=== PATIENT | male | born 1935 | race Caucasian/White ===

== ENCOUNTER 2017-01-27 08:00 | Observation (INO) ==
--- OUTSIDE RECORDS SUMMARY | 2017-01-27 08:05 | External Medical Summary | Referral Summary ---
:1935 Author Organization [facility] [place] [address] Care Team Providers Name Role Phone Varun Martinez Primary Care Physician Encounter [facility] [phone] Date(s): 06/06/16 - 06/06/16 [facility] [place] [phone] Discharge Diagnosis: Hypertension Discharge Diagnosis: Constipation Discharge Diagnosis: Mild depression Discharge Diagnosis: Right shoulder pain Discharge Diagnosis: Chronic insomnia Discharge Diagnosis: Gout Discharge Disposition: 01-Home or Self Care Attending Physician: Varun Martinez MD Admitting Physician: Varun Martinez MD Vital Signs Most recent to oldest [Reference Range]: 1 Blood Pressure [90-140/60-90 mmHg] 126/84 mmHg (06/06/16 8:46 AM) Problem List Condition Effective Dates Status Health Status Informant Abrasion of arm, right(Confirmed) Active Aortic insufficiency(Confirmed) Active Aortic valve sclerosis(Confirmed) Active Blister of foot without Active infection(Confirmed) CAD (coronary artery Active disease)(Confirmed) Dehydration(Confirmed) Active Neuropathy, peripheral(Confirmed) Active Dizzy spells(Confirmed) Active Gout(Confirmed) Active Ventral hernia(Confirmed) Active Hypertension(Confirmed) Active Obesity(Confirmed) Active patient Pneumonia(Confirmed) Active Encounter for prostate cancer Active screening(Confirmed) Allergies, Adverse Reactions, Alerts No Known Medication Allergies Medications aspirin 325 mg, Oral, Daily, 0 Refill(s) Start Date: 11/13/14 Status: OrderedCollagen tablets Collagen tablets, 0 Refill(s) Start Date: 05/31/15 Status: OrderedLipitor 40 mg oral tablet 1 tabs, Oral, Daily, # 30 tabs, 0 Refill(s) Start Date: 12/13/13 Status: OrderedMiscellaneous DME DME Item Compressions Hose-Men's WHITE Dress Socks X-Lg Pair 20-30 mm Dispense 3 pair [id number] MATHIS [id number], See Instructions, # 4 Each, 0 Refill(s), Supply Start Date: 09/26/14 Status: OrderedMobic 7.5 mg oral tablet 7.5 mg 1 tabs, Oral, BID, # 60 tabs, 2 Refill(s), Pharmacy: [id number], 1 tabs Oral BID Start Date: 06/06/16 Status: Orderednitroglycerin 0.4 mg sublingual tablet 1 tabs, SubLingual, q5min, as needed for chest pain, # 100 tabs, 0 Refill(s) Start Date: 12/13/13 Status: OrderedOsteo Bi-Flex 0 Refill(s) Start Date: 05/31/15 Status: OrderedtraZODone 50 mg oral tablet 25 mg 0.5 tabs, Oral, Bedtime (once a day), # 15 tabs, 2 Refill(s), Pharmacy: [id number], 0.5 tabs Oral Bedtime (once a day) Start Date: 06/06/16 Status: OrderedUloric 40 mg oral tablet 40 mg 1 tabs, Oral, Daily, # 30 tabs, 0 Refill(s), Pharmacy: [id number], 1 tabs Oral Daily Start Date: 06/03/16 Status: OrderedVitamin B-12 1,000 mcg, Oral, Daily, 0 Refill(s) Start Date: 11/13/14 Status: Ordered Results No data available for this section Immunizations Given and Recorded Vaccine Date Status Refusal Reason tetanus/diphth/pertuss (Tdap) adult/adol 04/22/13 Recorded influenza virus vaccine, inactivated1, 2 01/14/16 Recorded influenza virus vaccine, inactivated3 01/13/15 Recorded influenza virus vaccine, live 01/20/13 Given 1Location History: [id number] Comment: [01/15/2016] Pt was given Fluzone High Dose [id number]. This is not currently an option in the product box.3Location History: [facility] Procedures Procedure Date Related Diagnosis Body Site Complicated cataract surgery 10/31/14 Colonoscopy [email or web address] 07/19/07 Adenoidectomy Appendectomy Cardiac catheterization stent of LAD artery Epididymectomy; bilateral Tonsillectomy 1diverticulosis - Plan repeat colonoscopy in 10 years 07/18/2017 Social History Social History Type Response Smoking Status Former smoker; Type: Cigarettes Assessment and Plan Extracted from: Title: Ambulatory Patient Education Author: Varun Martinez MD Date: Family Medicine Arthritis, Nonspecific Arthritis is pain, redness, warmth, or puffiness (inflammation) of a joint. The joint may be stiff or hurt when you move it. One or more joints may be affected. There are many types of arthritis. Your d octor may not know what type you have right away. The most common cause of arthritis is wear and tear on the joint (osteoarthritis). HOME CARE Only take medicine as told by your doctor. Rest the joint as much as possible. Raise (elevate) your joint if it is puffy. Use crutches if the painful joint is in your leg. Drink enough fluids to keep your pee (urine) clear or pale yellow. Follow your doctor's diet instructions. Use cold packs for very bad joint pain for 10 to 15 minutes every hour. Ask your doctor if it is okay for you to use hot packs. Exercise as told by your doctor. Take a warm shower if you have stiffness in the morning. Move your sore joints throughout the day. GET HELP RIGHT AWAY IF: You have a fever. You have very bad joint pain, puffiness, or redness. You have many joints that are painful and puffy. You are not getting better with treatment. You have very bad back pain or leg weakness. You cannot control when you poop (bowel movement) or pee (urinate). You do not feel better in 24 hours or are getting worse. You are having side effects from your medicine. MAKE SURE YOU: Understand these instructions. Will watch your condition. Will get help right away if you are not doing well or get worse. This information is not intended to replace advice given to you by your health care provider. Make sure you discuss any questions you have with your health care provider. Document Released: 07/29/2010 Document Revised: 11/02/2012 Document Reviewed: 07/30/2015 [employer] Patient Education 2016 [employer] Home Health Care Constipation, Adult Constipation is when a person: Poops (has a bowel movement) less than 3 times a week. Has a hard time pooping. Has poop that is dry, hard, or bigger than normal. HOME CARE Eat foods with a lot of fiber in them. This includes fruits, vegetables , beans, and whole grains such as brown rice. Avoid fatty foods and foods with a lot of sugar. This includes danish fries, hamburgers, cookies, candy, and soda. If you are not getting enough fiber from food, take products with added fiber in them (supplements). Drink enough fluid to keep your pee (urine) clear or pale yellow. Exercise on a regular basis, or as told by your doctor. Go to the restroom when you feel like you need to poop. Do not hold it. Only take medicine as told by your doctor. Do not take medicines that help you poop (laxatives) without talking to your doctor first. GET HELP RIGHT AWAY IF: You have bright red blood in your poop (stool). Your constipation lasts more than 4 days or gets worse. You have belly (abdominal) or butt (rectal) pain. You have thin poop (as thin as a pencil). You lose weight, and it cannot be explained. MAKE SURE YOU: Understand these instructions. Will watch your condition. Will get help right away if you are not doing well or get worse. This information is not intended to replace advice given to you by your health care provider. Make sure you discuss any questions you have with your health care provider. Document Released: 10/20/2008 Document Revised: 05/25/2015 Document Reviewed: 02/13/2014 [employer] Patient Education 2016 [employer] Musculoskeletal Musculoskeletal Pain Musculoskeletal pain is muscle and nii aches and pains. These pains can occur in any part of the body. Your caregiver may treat you without knowing the cause of the pain. They may treat you if blood o r urine tests, X-rays, and other tests were normal. CAUSES There is often not a definite cause or reason for these pains. These pains may be caused by a type of germ (virus). The discomfort may also come from overuse. Overuse includes working out too hard when your body is not fit. Nii aches also come from weather changes. Bone is sensitive to atmospheric pressure changes. HOME CARE INSTRUCTIONS Ask when your test results will be ready. Make sure you get your test results. Only take [id number]-[id number] or prescription medicines for pain, discomfort, or fever as directed by your caregiver. If you were given medications for your condition, do not drive, operate machiner y or power tools, or sign legal documents for 24 hours. Do not drink alcohol. Do not take sleeping pills or other medications that may interfere with treatment. Continue all activities unless the activities cause more pain. When the pain lessens, slowly resume normal activities. Gradually increase the intensity and duration of the activities or exercise. During periods of severe pain, bed rest may be helpful. Lay or sit in any position that is comfortable. Putting ice on the injured area. Put ice in a bag. Place a towel between your skin and the bag. Leave the ice on for 15 to 20 minutes, 3 to 4 times a day. Follow up with your caregiver for continued problems and no reason can be found for the pain. If the pain becomes worse or does not go away, it may be necessary to repeat tests or do additional t esting. Your caregiver may need to look further for a possible cause. SEEK IMMEDIATE MEDICAL CARE IF: You have pain that is getting worse and is not relieved by medications. You develop chest pain that is associated with shortness or breath, sweating, feeling sick to your stomach (nauseous), or throw up (vomit). Your pain becomes localized to the abdomen. You develop any new symptoms that seem different or that concern you. MAKE SURE YOU: Understand these instructions. Will watch your condition. Will get help right away if you are not doing well or get worse. This information is not intended to replace advice given to you by your health care provider. Make sure you discuss any questions you have with your health care provider. Document Released: 05/04/2006 Document Revised: 07/26/2012 Document Reviewed: 01/06/2014 [employer] Patient Education 2016 [employer] No follow up information was provided. Extracted from: Title: Office Visit Note Author: Varun Martinez MD Date: 06/06/16 Assessment/Plan 1.Right shoulder pain Rx for Mobic and heat and follow up if it continues. 2.Constipation Trial of Miralax. 3.Chronic insomnia Trazodone 25mg for sleep and depression. 4.Mild depression As above. Gout Continue with the Uloric. 40mg. Hypertension No change in treatment. Ordered: Comprehensive Metabolic Panel Follow up in 3 months. Lab is in to be taken next week.
--- OUTSIDE RECORDS SUMMARY | 2017-01-27 08:05 | External Medical Summary | Referral Summary ---
:1935 Author Organization [facility], [facility] Address [address] [place] [address] [place] [address] Care Team Providers Name Role Phone Varun Martinez Primary Care Physician Encounter Date(s): 01/31/15 - 01/31/15 [facility], [address] [place] [phone] [place] Discharge Diagnosis: Arm injury Discharge Diagnosis: Skin tear of right forearm without complication Discharge Disposition: 01-Home or Self Care Attending Physician: Marcus Fisher PA-C Admitting Physician: Marcus Fisher PA-C Vital Signs Most recent to oldest [Reference Range]: 1 Temperature Tympanic [36.6-38.1 degC] 36.2 degC *LOW* (01/31/15 2:13 PM) Peripheral Pulse Rate [60-100 bpm] 84 bpm (01/31/15 2:13 PM) Blood Pressure [90-140/60-90 mmHg] 146/98 mmHg *HI* (01/31/15 2:13 PM) SpO2 96 % (01/31/15 2:13 PM) Problem List Condition Effective Dates Status Health [...] Reactions, Alerts No Known Medication Allergies Medications allopurinol 300 mg oral tablet See Instructions, TAKE ONE TABLET BY MOUTH EVERY DAY, # 90 tabs, 3 Refill(s), Pharmacy: [id number], TAKE ONE TABLET BY MOUTH EVERY DAY Start Date: 05/31/15 Status: Orderedaspirin 325 mg, Oral, Daily, 0 Refill(s) Start Date: 11/13/14 Status: OrderedCollagen tablets Collagen tablets, 0 Refill(s) Start Date: 05/31/15 Status: OrderedLipitor 40 mg oral tablet 1 tabs, Oral, Daily, # 30 tabs, 0 Refill(s) Start Date: 12/13/13 Status: OrderedMiscellaneous DME DME Item Compressions Hose-Men's WHITE Dress Socks X-Lg Pair 20-30 mm Dispense 3 pair [id number] [id number], See Instructions, # 4 Each, 0 Refill(s), Supply Start Date: 09/26/14 Status: Orderednitroglycerin 0.4 mg sublingual tablet 1 tabs, SubLingual, q5min, as needed for chest pain, # 100 tabs, 0 Refill(s) Start Date: 12/13/13 Status: OrderedOsteo Bi-Flex 0 Refill(s) Start Date: 05/31/15 Status: OrderedVitamin B-12 1,000 mcg, Oral, Daily, 0 Refill(s) Start Date: 11/13/14 Status: Ordered Results No data available for this section Immunizations Vaccine Date Refusal Reason tetanus/diphth/pertuss (Tdap) adult/adol 04/22/13 influenza virus vaccine, inactivated1 01/13/15 influenza virus vaccine, live 01/20/13 1Location History: [facility] Procedures Procedure Date Related Diagnosis Body Site Complicated cataract surgery 10/31/14 Colonoscopy [email or web address] 07/19/07 Adenoidectomy Appendectomy Cardiac catheterization stent of LAD artery Epididymectomy; bilateral Tonsillectomy 1diverticulosis - Plan repeat colonoscopy in 10 years 07/18/2017 Social History Social History Type Response Smoking Status Former smoker; Type: Cigarettes Assessment and Plan Extracted from: Title: skin tear Author: Marcus Fisher PA-C Date: 01/31/15 Assessment/Plan Arm injury X-rays were reviewedwere taken in the emergency room,no signs of fracture or other abnormalities. Activities as tolerated. Skin tear of right forearm without complication It appears to be healing very well, without evidence of infection. Patient was reassured. We applied Xeroform to the woundfollowed by [place];recommended repeating this for 4 more days then dry bandage when out working otherwise leave open to air.
--- OUTSIDE RECORDS SUMMARY | 2017-01-27 08:05 | External Medical Summary | Referral Summary ---
:1935 [facility] Address [address] [place] [address] [place] [phone] Care Team Providers Name Role Phone Varun Martinez Primary Care Physician Encounter [facility] [id number] Date(s): 05/31/15 - 05/31/15 [facility] [address] [place] [phone] [place] Discharge Disposition: 01-Home or Self Care Attending Physician: Varun Martinez MD Admitting Physician: Varun Martinez MD Vital Signs Most recent to oldest [Reference Range]: 1 Blood Pressure [90-140/60-90 mmHg] 128/78 mmHg (05/31/15 8:40 AM) Problem List Condition Effective Dates Status [...] DAY, # 90 tabs, 3 Refill(s), Pharmacy: [facility], TAKE ONE TABLET BY MOUTH EVERY DAY [...] X-Lg Pair 20-30 mm Dispense 3 pair [id number] VOWINCKEL [phone], See Instructions, # 4 Each, 0 Refill(s), Supply Start Date: 09/26/14 Status: Orderednitroglycerin 0.4 mg sublingual tablet 1 tabs, SubLingual, q5min, as needed for chest pain, # 100 tabs, 0 Refill(s) Start Date: 12/13/13 Status: OrderedOsteo Bi-Flex 0 Refill(s) Start Date: 05/31/15 Status: OrderedVitamin B-12 1,000 mcg, Oral, Daily, 0 Refill(s) Start Date: 11/13/14 Status: Ordered Results Hematology Most recent to oldest [Reference Range]: 1 WBC [4.8-10.8 10*3/uL] 6.0 10*3/uL (05/31/15 9:20 AM) RBC [4.60-6.20] 4.88 (05/31/15 9:20 AM) Hgb [14.0-18.0 gm/dL] 16.0 gm/dL (05/31/15 9:20 AM) Hct [42.0-52.0 %] 48.0 % (05/31/15 9:20 AM) MCV [82.0-99.0 fL] 98.4 fL (05/31/15 9:20 AM) MCH [27.0-32.0 pg] 32.8 pg *HI* (05/31/15 9:20 AM) MCHC [32.0-36.0 gm/dL] 33.3 gm/dL (05/31/15 9:20 AM) RDW [11.5-14.5 %] 13.5 % (05/31/15 9:20 AM) Platelet [150-400 10*3/uL] 136 10*3/uL *LOW* (05/31/15 9:20 AM) MPV [8.8-14.8 fL] 11.2 fL (05/31/15 9:20 AM) Immature Granulocytes [0.0-1.0 %] 0.3 % (05/31/15 9:20 AM) Neutrophils [51-75 %] 71 % (05/31/15 9:20 AM) Lymphocytes [20-46 %] 12 % *LOW* (05/31/15 9:20 AM) Monocytes [4-11 %] 10 % (05/31/15 9:20 AM) Eosinophils [0-4 %] 6 % *HI* (05/31/15 9:20 AM) Basophils [0-2 %] 1 % (05/31/15 9:20 AM) Neutro Absolute [1.90-7.00 10*3] 4.27 10*3 (05/31/15 9:20 AM) Lymph Absolute [0.80-3.30 10*3] 0.71 10*3 *LOW* (05/31/15 9:20 AM) Colbert Absolute [0.30-1.00 10*3] 0.61 10*3 (05/31/15 9:20 AM) Eos Absolute [0.00-0.50 10*3] 0.34 10*3 (05/31/15 9:20 AM) Baso Absolute [0.00-0.20 10*3] 0.05 10*3 (05/31/15 9:20 AM) Chemistry Most recent to oldest [Reference Range]: 1 Sodium Lvl [135-144 mEq/L] 141 mEq/L (05/31/15 9:20 AM) Potassium Lvl [3.5-5.2 mEq/L] 4.1 mEq/L (05/31/15 9:20 AM) Chloride [99-111 mEq/L] 108 mEq/L (05/31/15 9:20 AM) CO2 [23-31 mEq/L] 25 mEq/L (05/31/15 9:20 AM) AGAP [3-20] 8 (05/31/15 9:20 AM) BUN [8-26 mg/dL] 22 mg/dL (05/31/15 9:20 AM) Glucose Lvl [70-99 mg/dL] 122 mg/dL *HI* (05/31/15 9:20 AM) Creatinine Lvl [0.72-1.25 mg/dL] 0.91 mg/dL (05/31/15 9:20 AM) eGFR [>60 mL/min] >60 mL/min 1 (05/31/15 9:20 AM) Calcium Lvl [8.9-10.5 mg/dL] 9.1 mg/dL (05/31/15 9:20 AM) Albumin Lvl [3.4-4.8 gm/dL] 3.9 gm/dL (05/31/15 9:20 AM) Total Protein [6.2-8.1 gm/dL] 6.9 gm/dL (05/31/15 9:20 AM) Globulin [1.8-4.0 gm/dL] 3.0 gm/dL (05/31/15 9:20 AM) ALT [0-55 U/L] 31 U/L (05/31/15 9:20 AM) AST [5-34 U/L] 25 U/L (05/31/15 9:20 AM) Alk Phos [40-150 U/L] 75 U/L (05/31/15 9:20 AM) Bili Total [0.2-1.2 mg/dL] 1.4 mg/dL *HI* (05/31/15 9:20 AM) PSA (wihout Reflex Free) [0.0-6.5 ng/mL] 0.4 ng/mL 2 (05/31/15 9:20 AM) Chol [0-199 mg/dL] 153 mg/dL (05/31/15 9:20 AM) Trig [0-149 mg/dL] 157 mg/dL *HI* (05/31/15 9:20 AM) HDL [40-84 mg/dL] 41 mg/dL (05/31/15 9:20 AM) LDL [0-130 mg/dL] 81 mg/dL (05/31/15 9:20 AM) VLDL Cholesterol [0-28 mg/dL] 31 mg/dL *HI* (05/31/15 9:20 AM) Cardiac Risk [0.0-5.7] 3.7 (05/31/15 9:20 AM) 1Result Comment: Multiply eGFR results by 1.21 for race.2Result Comment: AUA PSA Best Practice Guidelines: Age-Adjusted PSA Values by Ethnic Group Age Range Asians - Caucasians Americans 40-49 0-2.0 0-2.0 0-2.5 50-59 0-3.0 0-4.0 0-3.5 60-69 0-4.0 0-4.5 0-4.5 70-79 0-5.0 0-5.5 0-6.5 Immunizations Vaccine Date Refusal Reason tetanus/diphth/pertuss (Tdap) adult/adol 04/22/13 influenza virus vaccine, inactivated1 01/13/15 influenza virus vaccine, live 01/20/13 1Location History: [facility] Procedures Procedure Date Related Diagnosis Body Site Complicated cataract surgery 10/31/14 Colonoscopy [email or web address] 07/19/07 Adenoidectomy Appendectomy Cardiac catheterization stent of LAD artery Epididymectomy; bilateral Tonsillectomy 1diverticulosis - Plan repeat colonoscopy in 10 years 07/18/2017 Social History Social History Type Response Smoking Status Former smoker; Type: Cigarettes Assessment and Plan No data available for this section
--- OUTSIDE RECORDS SUMMARY | 2017-01-27 08:05 | External Medical Summary | Referral Summary ---
:1935 Author Organization [facility] Address [address] [place] [address] [place] [address] Care Team Providers Name Role Phone Varun Martinez Primary Care Physician Encounter [facility] Date(s): 11/13/14 - 11/13/14 [facility] [address] [place] [address] [place] Discharge Disposition: 01-Home or Self Care Attending Physician: Varun Martinez MD Admitting Physician: Varun Martinez MD Vital Signs Most recent to oldest [Reference Range]: 1 Blood Pressure [90-140/60-90 mmHg] 138/90 mmHg (11/13/14 3:15 PM) Problem List Condition Effective Dates Status Health Status Informant Abrasion of arm, right(Confirmed) Active Aortic insufficiency(Confirmed) Active Aortic valve sclerosis(Confirmed) Active Blister of foot without Active infection(Confirmed) CAD (coronary artery Active disease)(Confirmed) Dehydration(Confirmed) Active Neuropathy, peripheral(Confirmed) Active Dizzy spells(Confirmed) Active Gout(Confirmed) Active Ventral hernia(Confirmed) Active Hypertension(Confirmed) Active Obesity(Confirmed) Active patient Pneumonia(Confirmed) Active Allergies, Adverse Reactions, Alerts No Known Medication Allergies Medications allopurinol 300 mg oral tablet See Instructions, TAKE ONE TABLET BY MOUTH EVERY DAY, # 30 tabs, 5 Refill(s), eRx: [facility] [id number], TAKE ONE TABLET BY MOUTH EVERY DAY Start Date: 12/04/14 Status: Orderedaspirin 325 mg, Oral, Daily, 0 Refill(s) Start Date: 11/13/14 Status: OrderedBactroban 2% topical cream 1 marika, Topical, BID, # 15 g, 0 Refill(s), Pharmacy: [id number] Start Date: 02/05/15 Status: OrderedLipitor 40 mg oral tablet 1 tabs, Oral, Daily, # 30 tabs, 0 Refill(s) Start Date: 12/13/13 Status: OrderedMiscellaneous DME DME Item Compressions Hose-Men's WHITE Dress Socks X-Lg Pair 20-30 mm Dispense 3 pair [id number] [place] [phone], See Instructions, # 4 Each, 0 Refill(s), Supply Start Date: 09/26/14 Status: Orderednitroglycerin 0.4 mg sublingual tablet 1 tabs, SubLingual, q5min, as needed for chest pain, # 100 tabs, 0 Refill(s) Start Date: 12/13/13 Status: OrderedVitamin B-12 1,000 mcg, Oral, Daily, 0 Refill(s) Start Date: 11/13/14 Status: Ordered Results No data available for this section Immunizations Vaccine Date Refusal Reason tetanus/diphth/pertuss (Tdap) adult/adol 04/22/13 influenza virus vaccine, inactivated1 01/13/15 influenza virus vaccine, live 01/20/13 1Location History: [facility] Procedures Procedure Date Related Diagnosis Body Site Colonoscopy [id number]/[email or web address] 07/19/07 Adenoidectomy Appendectomy Cardiac catheterization stent of LAD artery Epididymectomy; bilateral Tonsillectomy 1diverticulosis - Plan repeat colonoscopy in 10 years 07/18/2017 Social History Social History Type Response Smoking Status Former smoker; Type: Cigarettes Assessment and Plan Extracted from: Title: Ambulatory Patient Education Author: Varun Martinez MD Date: Family Medicine Peripheral Neuropathy Peripheral neuropathy is a type of nerve damage. It affects nerves that carry signals between the spinal cord and other parts of the body. These are called peripheral nerves. With peripheral neuropathy, one nerve or a group of nerves may be damaged. CAUSES Many things can damage peripheral nerves. For some people with peripheral neuropathy, the cause is unknown. Some causes include: Diabetes. This is the most common cause of peripheral neuropathy. Injury to a nerve. Pressure or stress on a nerve that lasts a long time. Too little vitamin B. Alcoholism can lead to this. Infections. Autoimmune diseases, such as multiple sclerosis and systemic lupus erythematosus. Inherited nerve diseases. Some medicines, such as cancer drugs. Toxic substances, such as lead and mercury. Too little blood flowing to the legs. Kidney disease. Thyroid disease. SIGNS AND SYMPTOMS Different people have different symptoms. The symptoms you have will depend on which of your nerves is damaged. Common symptoms include: Loss of feeling (numbness ) in the feet and hands. Tingling in the feet and hands. Pain that kirkpatrick. Very sensitive skin. Weakness. Not being able to move a part of the body (paralysis ). Muscle twitching. Clumsiness or poor coordination. Loss of balance. Not being able to control your bladder. Feeling dizzy. Sexual problems. DIAGNOSIS Peripheral neuropathy is a symptom, not a disease. Finding the cause of peripheral neuropathy can be hard. To figure that out, your health care provider will take a medical history and do a physical exa m. A neurological exam will also be done. This involves checking things affected by your brain, spinal cord, and nerves (nervous system ). For example, your health care provider will check your reflexes, how you move, and what you can feel. Other types of tests may also be ordered, such as: Blood tests. A test of the fluid in your spinal cord. Imaging tests, such as CT scans or an MRI. Electromyography (EMG). This test checks the nerves that control muscles. Nerve conduction velocity tests. These tests check how fast messages pass through your nerves. Nerve biopsy. A small piece of nerve is removed. It is then checked under a microscope. TREATMENT Medicine is often used to treat peripheral neuropathy. Medicines may include: Pain-relieving medicines. Prescription or mbip-pxp-bfnvvre medicine may be suggested. Antiseizure medicine. This may be used for pain. Antidepressants. These also may help ease pain from neuropathy. Lidocaine. This is a numbing medicine. You might wear a patch or be given a shot. Mexiletine. This medicine is typically used to help control irregular heart rhythms. Surgery. Surgery may be needed to relieve pressure on a nerve or to destroy a nerve that is causing pain. Physical therapy to help movement. Assistive devices to help movement. HOME CARE INSTRUCTIONS Only take cjdd-njb-nvldqkb or prescription medicines as directed by your health care provider. Follow the instructions carefully for any given medicines. Do not take any other medicines without fir st getting approval from your health care provider. If you have diabetes, work closely with your health care provider to keep your blood sugar under control. If you have numbness in your feet: Check every day for signs of injury or infection. Watch for redness, warmth, and swelling. Wear padded socks and comfortable shoes. These help protect your feet. Do not do things that put pressure on your damaged nerve. Do not smoke. Smoking keeps blood from getting to damaged nerves. Avoid or limit alcohol. Too much alcohol can cause a lack of B vitamins. These vitamins are needed for healthy nerves. Develop a good support system. Coping with peripheral neuropathy can be stressful. Talk to a mental health specialist or join a support group if you are struggling. Follow up with your health care provider as directed. SEEK MEDICAL CARE IF: You have new signs or symptoms of peripheral neuropathy. You are struggling emotionally from dealing with peripheral neuropathy. You have a fever. SEEK IMMEDIATE MEDICAL CARE IF: You have an injury or infection that is not healing. You feel very dizzy or begin vomiting. You have chest pain. You have trouble breathing. Document Released: 04/24/2003 Document Revised: 01/14/2012 Document Reviewed: 01/09/2014 [facility] Patient Information [address] [employer] [facility]. Blisters Blisters are fluid-filled sacs that form within the skin. Common causes of blistering are friction, kirkpatrick, and exposure to irritating chemicals. The fluid in the blister protects the underlying damaged skin. Most of the time it is not recommended that you open blisters. When a blister is opened, there is an increased chance for infection. Usually, a blister will open on its own. They then dry up and p eel off within 10 days. If the blister is tense and uncomfortable (painful) the fluid may be drained. If it is drained the roof of the blister should be left intact. The draining should only be done by a medical professional under aseptic conditions. Poorly fitting shoes and boots can cause blisters by being too tight or too loose. Wearing extra socks or using tape, bandages, or pads over the blister- prone area helps prevent the problem by reducing friction. Blisters heal more slowly if you have diabetes or if you have problems with your circulation. You need to be careful about medical follow-up to prevent infection. HOME CARE INSTRUCTIONS Protect areas where blisters have formed until the skin is healed. Use a special bandage with a hole cut in the middle around the blister. This reduces pressure and friction. When the blister breaks, tr im off the loose skin and keep the area clean by washing it with soap daily. Soaking the blister or broken-open blister with diluted vinegar twice daily for 15 minutes will dry it up and speed the heali ng. Use 3 tablespoons of white vinegar per quart of water (45 mL white vinegar per liter of water). An antibiotic ointment and a bandage can be used to cover the area after soaking. SEEK MEDICAL CARE IF: You develop increased redness, pain, swelling, or drainage in the blistered area. You develop a pus-like discharge from the blistered area, chills, or a fever. MAKE SURE YOU: Understand these instructions. Will watch your condition. Will get help right away if you are not doing well or get worse. Document Released: 06/11/2005 Document Revised: 07/26/2012 Document Reviewed: 05/09/2009 [facility] Patient Information 2014 [employer]. No follow up information was provided. Extracted from: Title: Office Visit Note Author: Varun Martinez MD Date: 11/13/14 Assessment/Plan Blister of foot without infection Patient informed of wound care. Ordered: Office Visit Level 2 Est 29546 Neuropathy, peripheral Continue with the current medications. Ordered: Office Visit Level 2 Est 44977
--- OUTSIDE RECORDS SUMMARY | 2017-01-27 08:05 | External Medical Summary | Referral Summary ---
:1935 Author Organization [facility] [address] [place] [address] Care Team Providers Name Role Phone Varun Martinez Primary Care Physician Encounter [facility] [id number] Date(s): 05/27/16 - 05/27/16 [address] [address] [place] [address] [place] Discharge Diagnosis: H/O thrombocytopenia Discharge Diagnosis: Gout Discharge Diagnosis: Dehydration Discharge Disposition: 01-Home or Self Care Attending Physician: Varun Martinez MD Admitting Physician: Varun Martinez MD Vital Signs Most recent to oldest [Reference Range]: 1 Blood Pressure [90-140/60-90 mmHg] 118/76 mmHg (05/27/16 10:07 AM) Problem List Condition Effective Dates Status [...] DAY, # 90 tabs, 3 Refill(s), Pharmacy: [id number], TAKE ONE TABLET BY MOUTH EVERY DAY [...] X-Lg Pair 20-30 mm Dispense 3 pair [id number] [place] [phone], See Instructions, # 4 Each, 0 Refill(s), [...] virus vaccine, live 01/20/13 Given 1Location History: [id number] Comment: [01/15/2016] Pt was given Fluzone High Dose [id number]. This is not currently an option in the product box.3Location History: [facility] Procedures Procedure Date Related Diagnosis Body Site Complicated cataract surgery 10/31/14 Colonoscopy [email or web address] 07/19/07 Adenoidectomy Appendectomy Cardiac catheterization stent of LAD artery Epididymectomy; bilateral Tonsillectomy 1diverticulosis - Plan repeat colonoscopy in 10 years 07/18/2017 Social History Social History Type Response Smoking Status Former smoker; Type: Cigarettes Assessment and Plan Extracted from: Title: Ambulatory Patient Education Author: Varun Martinez MD Date: Mazh-de-Gptv Gout Gout is when your joints become red, sore, and swell (inflamed). This is caused by the buildup of uric acid crystals in the joints. Uric acid is a chemical that is normally in the blood. If the level of uric acid gets too high in the blood, these crystals form in your joints and tissues. Over time, these crystals can form into masses near the joints and tissues. These masses can destroy bone and cause the bone to look misshapen ( deformed). HOME CARE Do not take aspirin for pain. Only take medicine as told by your doctor. Rest the joint as much as you can. When in bed, keep sheets and blankets off painful areas. Keep the sore joints raised (elevated). Put warm or cold packs on painful joints. Use of warm or cold packs depends on which works best for you. Use crutches if the painful joint is in your leg. Drink enough fluids to keep your pee (urine) clear or pale yellow. Limit alcohol, sugary drinks, and drinks with fructose in them. Follow your diet instructions. Pay careful attention to how much protein you eat. Include fruits, vegetables, whole grains, and fat-free or low- fat milk products in your daily diet. Talk to your doctor or dietitian about the use of coffee, vitamin C, and cherries. These may help lower uric acid levels. Keep a healthy body weight. GET HELP RIGHT AWAY IF: You have watery poop (diarrhea), throw up (vomit), or have any side effects from medicines. You do not feel better in 24 hours, or you are getting worse. Your joint becomes suddenly more tender, and you have chills or a fever. MAKE SURE YOU: Understand these instructions. Will watch your condition. Will get help right away if you are not doing well or get worse. This information is not intended to replace advice given to you by your health care provider. Make sure you discuss any questions you have with your health care provider. Document Released: 02/10/2009 Document Revised: 05/25/2015 Document Reviewed: 12/15/2012 [employer] Interactive Patient Education 2016 [employer] Home Health Care Dehydration, Adult Dehydration is when you lose more fluids from the body than you take in. Vital organs like the kidneys, brain, and heart cannot function without a proper amount of fluids and salt. Any loss of fluids from the body can cause dehydration. CAUSES Vomiting. Diarrhea. Excessive sweating. Excessive urine output. Fever. SYMPTOMS Mild dehydration Thirst. Dry lips. Slightly dry mouth. Moderate dehydration Very dry mouth. Sunken eyes. Skin does not bounce back quickly when lightly pinched and released. Dark urine and decreased urine production. Decreased tear production. Headache. Severe dehydration Very dry mouth. Extreme thirst. Rapid, weak pulse (more than 100 beats per minute at rest). Cold hands and feet. Not able to sweat in spite of heat and temperature. Rapid breathing. Blue lips. Confusion and lethargy. Difficulty being awakened. Minimal urine production. No tears. DIAGNOSIS Your caregiver will diagnose dehydration based on your symptoms and your exam. Blood and urine tests will help confirm the diagnosis. The diagnostic evaluation should also identify the cause of dehydration. TREATMENT Treatment of mild or moderate dehydration can often be done at home by increasing the amount of fluids that you drink. It is best to drink small amounts of fluid more often. Drinking too much at one armando e can make vomiting worse. Refer to the home care instructions below. Severe dehydration needs to be treated at the hospital where you will probably be given intravenous (IV) fluids that contain water and electrolytes. HOME CARE INSTRUCTIONS Ask your caregiver about specific rehydration instructions. Drink enough fluids to keep your urine clear or pale yellow. Drink small amounts frequently if you have nausea and vomiting. Eat as you normally do. Avoid: Foods or drinks high in sugar. Carbonated drinks. Juice. Extremely hot or cold fluids. Drinks with caffeine. Fatty, greasy foods. Alcohol. Tobacco. Overeating. Gelatin desserts. Wash your hands well to avoid spreading bacteria and viruses. Only take bzjn-gec-juxjlsv or prescription medicines for pain, discomfort, or fever as directed by your caregiver. Ask your caregiver if you should continue all prescribed and over-the- counter medicines. Keep all follow-up appointments with your caregiver. SEEK MEDICAL CARE IF: You have abdominal pain and it increases or stays in one area (localizes ). You have a rash, stiff neck, or severe headache. You are irritable, sleepy, or difficult to awaken. You are weak, dizzy, or extremely thirsty. SEEK IMMEDIATE MEDICAL CARE IF: You are unable to keep fluids down or you get worse despite treatment. You have frequent episodes of vomiting or diarrhea. You have blood or green matter (bile) in your vomit. You have blood in your stool or your stool looks black and tarry. You have not urinated in 6 to 8 hours, or you have only urinated a small amount of very dark urine. You have a fever. You faint. MAKE SURE YOU: Understand these instructions. Will watch your condition. Will get help right away if you are not doing well or get worse. This information is not intended to replace advice given to you by your health care provider. Make sure you discuss any questions you have with your health care provider. Document Released: 05/04/2006 Document Revised: 07/26/2012 Document Reviewed: 12/22/2011 [employer] Interactive Patient Education 2016 [employer] No follow up information was provided. Extracted from: Title: Office Visit Note Author: Varun Martinez MD Date: 05/27/16 Assessment/Plan 1.H/O thrombocytopenia Repeat the lab in 2 weeks. Ordered: CBC w/ Differential Office Visit Level 3 Est 84203 2.Gout A trial of Uloric 40mg sample. Ordered: Office Visit Level 3 Est 79547 Dehydration Encourage to drink more water Ordered: Office Visit Level 3 Est 15039
--- OUTSIDE RECORDS SUMMARY | 2017-01-27 08:05 | External Medical Summary | Referral Summary ---
:1935 Author Organization [facility] Address [address] [place] [address] [place] [address] Care Team Providers Name Role Phone Varun Martinez Primary Care Physician Encounter [facility] [id number] Date(s): 02/05/15 - 02/05/15 [address] [facility] [address] [place] [address] [place] Discharge Disposition: 01-Home or Self Care Attending Physician: Varun Martinez MD Admitting Physician: Varun Martinez MD Vital Signs Most recent to oldest [Reference Range]: 1 Blood Pressure [90-140/60-90 mmHg] 118/76 mmHg (02/05/15 1:23 PM) Problem List Condition Effective Dates Status [...] DAY, # 90 tabs, 3 Refill(s), Pharmacy: [facility], TAKE ONE TABLET BY [...] X-Lg Pair 20-30 mm Dispense 3 pair [id number] [place] [phone], See Instructions, # 4 Each, 0 Refill(s), [...] Patient Education Author: Varun Martinez MD Date: Ghuy-tz-Rzhj Abrasions An abrasion is a cut or scrape of the skin. Abrasions do not go through all layers of the skin. HOME CARE If a bandage (dressing) was put on your wound, change it as told by your doctor. If the bandage sticks, soak it off with warm. Wash the area with water and soap 2 times a day. Rinse off the soap. Pat the area dry with a clean towel. Put on medicated cream (ointment) as told by your doctor. Change your bandage right away if it gets wet or dirty. Only take medicine as told by your doctor. See your doctor within 2448 hours to get your wound checked. Check your wound for redness, puffiness (swelling), or yellowish-white fluid (pus). GET HELP RIGHT AWAY IF: You have more pain in the wound. You have redness, swelling, or tenderness around the wound. You have pus coming from the wound. You have a fever or lasting symptoms for more than 23 days. You have a fever and your symptoms suddenly get worse. You have a bad smell coming from the wound or bandage. MAKE SURE YOU: Understand these instructions. Will watch your condition. Will get help right away if you are not doing well or get worse. Document Released: 10/20/2008 Document Revised: 01/26/2013 Document Reviewed: 04/06/2012 [facility] Patient Information 2015 [employer]. This information is not intended to replace advice given to you by your health care provider. Make sure you discuss any questions you have with your health care provider. No follow up information was provided. Extracted from: Title: Office Visit Note Author: Varun Martinez MD Date: 02/05/15 Assessment/Plan Abrasion of arm, right Will treat today with Silvadene though will call out Bactroban bid and change dressing twice daily. Ordered: Office Visit Level 2 Est 03960 Orders: mupirocin topical, 1 marika, Topical, BID, # 15 g, 0 Refill(s), Pharmacy : [id number]
--- OUTSIDE RECORDS SUMMARY | 2017-01-27 08:06 | External Medical Summary | Referral Summary ---
:1935 Author [facility] Address [address] [place] [address] [place] [address] Care Team Providers Name Role Phone Varun Martinez Primary Care Physician Encounter [facility] [id number] Date(s): 11/13/15 - 11/13/15 [address] [facility] [address] [place] [address] [place] Discharge Diagnosis: Bilateral foot pain Discharge Disposition: 01-Home or Self Care Attending Physician: Vianney Brar APRN Admitting Physician: Vianney Brar APRN Vital Signs Most recent to oldest [Reference Range]: 1 Temperature Tympanic [36.6-38.1 degC] 36.6 degC (11/13/15 3:21 PM) Peripheral Pulse Rate [60-100 bpm] 71 bpm (11/13/15 3:21 PM) Blood Pressure [90-140/60-90 mmHg] 132/84 mmHg (11/13/15 3:21 PM) SpO2 95 % (11/13/15 3:21 PM) Problem List Condition Effective Dates Status [...] DAY, # 90 tabs, 3 Refill(s), Pharmacy: [id number], TAKE ONE TABLET BY MOUTH EVERY DAY Start Date: 05/31/15 Status: Orderedaspirin 325 mg, Oral, Daily, 0 Refill(s) Start Date: 11/13/14 Status: OrderedCollagen tablets Collagen tablets, 0 Refill(s) Start Date: 05/31/15 Status: OrderedLipitor 40 mg oral tablet 1 tabs, Oral, Daily, # 30 tabs, 0 Refill(s) Start Date: 12/13/13 Status: Orderedmeloxicam 15 mg oral tablet 15 mg 1 tabs, Oral, Daily, # 30 tabs, 0 Refill(s), Pharmacy: [facility], 1 tabs Oral Daily Start Date: 11/13/15 Status: OrderedMiscellaneous DME DME Item Compressions Hose-Men's WHITE Dress Socks X-Lg Pair 20-30 mm Dispense 3 pair [id number] [place] [phone], See Instructions, # 4 Each, 0 Refill(s), [...]
[2017-01-27 08:22] VITALS: BMI 29.3
[2017-01-27 09:23] VITALS: RESP 16
[2017-01-27] MEDS ORDERED: NITROGLYCERIN 0.4 MG SUBLINGUAL TABLET SL SCH (09:30)
[2017-01-27] MEDS ORDERED: OXYMETAZOLINE 0.05% NASAL SPRAY 15ml NS SCH (09:30)
--- NOTE | 2017-01-27 10:00 | Cardiology History & Physical ---
History of Present Illness Chief complaint: rapid heart rate HPI: Ha is a 81 year old male who is well known to Dr. Avalos with a history of paroxysmal atrial fibrillation, CAD, aortic ectasia, HTN and HLD who reports feeling a rapid heart rate several times weekly and was started on Eliquis 5mg by mouth BID. Today he is being admitted to observation for antiarrhythmic therapy on Flecainide. Due to proarrhythmic properties of the drug it is necessary to monitor cardiac telemetry over night and repeat EKG tomorrow. Review of Systems - Constitutional Constitutional: Present: fatigue. Absent: weakness, weight gain - EENMT Eyes: Absent: change in vision Balance: Absent: vertigo Mouth/Throat: Absent: sore throat - Cardiovascular Cardiovascular: Present: palpitations, dyspnea on exertion. Absent: chest pain , syncope, orthopnea, edema Vascular: Absent: pedal edema - Respiratory Respiratory: Present: dyspnea on exertion. Absent: cough - Gastrointestinal Gastrointestinal: Absent: diarrhea, nausea, vomiting - Genitourinary Genitourinary: Absent: dysuria - Integumentary/Breasts Integumentary: Absent: rash - Neurological Neurological: Absent: dizziness, vertigo, weakness - Endocrine Endocrine: Present: palpitations PFSH Patient Stated Medical History Cataracts Yes: bilat. cataracts removed Hearing Loss Yes Angina Yes: HX OF Cardiac Arrhythmia Yes: AFIB Coronary artery disease Yes Hyperlipidemia Yes Hypertension Yes Pneumonia Yes Hx Benign Prostatic Yes Hyperplasia Other Musculoskeletal Yes: Gout Cellulitis Yes: legs Surgical History: Appendectomy. Coronary stent 2010 Family History: Father- Cancer- pancreas Mother- Heart arrhythmis, CVA, DM type II, [place] - Social History Smoking status: Former smoker Substance use type: does not use Alcohol intake frequency: holidays/special occasions only Household members: spouse Current occupational status: retired Current residence: Apartment/Private Home Medications Home Medications Medication Instructions Recorded Confirmed Type Nitroglycerin 0.4 mg SL PRN #0 05/25/12 01/26/17 History Atorvastatin [Lipitor] 40 mg PO DAILY #0 04/29/13 01/27/17 History Cyanocobalamin (B-12) [Vit. B-12] 1 tab PO DAILY #0 tab 11/06/14 01/27/17 History hydroCHLOROthiazide 1 tab PO WB PRN #0 tab 05/27/16 01/27/17 History [Hydrochlorothiazide] Apixaban [Eliquis] 1 tab PO BID 01/26/17 01/27/17 History Febuxostat [Uloric] 1 tab PO DAILY 01/26/17 01/27/17 History Glucosamine/D3/Boswellia Sandi 1 each PO HS 01/26/17 01/27/17 History [Osteo Bi-Flex Tablet] Fluticasone Propionate [Flonase 2 spray NS DAILY 01/27/17 01/27/17 History Allergy Relief] Oxymetazoline HCl [Nasal [place]] 1 spray NS PRN 01/27/17 01/27/17 History Allergies Allergy/AdvReac Type Severity Reaction Status Date / Time No Known Allergies Allergy Unverified 01/27/17 08:20 Exam Vital signs: Temperature 96.8 F 01/27/17 08:01 Pulse Rate 68 01/27/17 08:04 Respiratory Rate 16 01/27/17 08:01 Blood Pressure 108/69 01/27/17 08:01 Pulse Oximetry 95 01/27/17 08:01 - Constitutional no acute distress, cooperative - Routine HEENT Exam Head: Present: normocephalic ENT: Present: mucous membranes moist - Routine Neck Exam Absent: JVD, carotid bruit - Routine Chest/Breast/Axilla Exam Chest wall: Absent: tenderness - Routine Respiratory Exam Present: CTA bilaterally. Absent: rales, wheezes - Routine Cardiovascular Exam Present: RRR, no murmur. Absent: JVD - Routine Abdominal Exam Present: soft, normoactive bowel sounds - Routine Extremities Exam Present: no edema - Routine Skin Exam Present: intact, dry, warm - Routine Neurological Exam Present: alert, oriented X3 - Routine Psychiatric Exam Present: normal affect, normal thought process Results 01/27/17 08:41 01/28/17 04:45 Cardiac Enzymes 01/27/17 Range/Units 08:41 AST 42 (17-59) U/L CBC 01/27/17 Range/Units 08:41 WBC 5.0 (4.5-11.0) T/MM3 RBC 4.58 (4.50-5.90) M/MM3 Hgb 15.3 (13.5-17.5) GM/DL Hct 45.2 (41-53) % Plt Count 121 L (130-400) T/MM3 Neut # 3.4 (1.8-7.7) T/MM3 Lymph # 0.8 L (1-4.8) T/MM3 [place] # 0.6 (0-0.8) T/MM3 Eos # 0.2 (0-0.5) T/MM3 Baso # 0.0 (0-0.2) T/MM3 Comprehensive Metabolic Panel 01/27/17 Range/Units 08:41 Sodium 142 (134-144) MEQ/L Potassium 3.8 (3.6-5) MEQ/L Chloride 106 (98-107) MEQ/L Carbon Dioxide 29 (22-30) MEQ/L BUN 23.0 H (9-20) MG/DL Creatinine 1.1 (0.8-1.5) MG/DL Glucose 106 (75-110) MG/DL Calcium 8.9 (8.4-10.2) MG/DL AST 42 (17-59) U/L ALT 69 (21-72) U/L Alkaline Phosphatase 59 (38-126) U/L Total Protein 6.7 (6.3-8.2) G/DL Albumin 3.8 (3.5-5.0) G/DL Intake and Output 01/26/17 01/27/17 01/27/17 22:59 06:59 14:59 Other: Weight 241 lb 2.971 oz Patient Weight 01/28/17 06:59 Weight 241 lb 2.971 oz - Imaging and Cardiology EKG results: image reviewed EKG interpretations - Dysrhythmias Sinus rhythms and dysrhythmias: sinus rhythm - Blocks, axis, hypertrophy, ST abn AV and intraventricular conduction: 1 AV block, right bundle branch block (fixed /intermittent, complete/incomplete) (incomplete) - AK, pacemaker, normal Myocardial infarction: inferior AK (old age indeterminate) Hospital Course This is a general summary of the patient's hospital course. For more details refer to the complete medical record. Time spent with patient: 25 - 35 minutes DVT Prophylaxis: Eliquis Assessment and Plan - Attestation Attestation Narrative: 02/03/17 07:57 Recommendation After examining the patient I agree with the above assessment. I am involved in the formulation of the patient's plan of care. - Assessment and Plan (1) Paroxysmal atrial fibrillation Status: Acute Antiarrhythmic therapy on Flecainide. Due to proarrhythmic properties of the drug it is necessary to monitor cardiac telemetry over night and repeat EKG tomorrow. Continue Eliquis. (2) Atherosclerotic heart disease of [place] coronary artery without angina pectoris Status: Acute Continue current therapy with routine monitoring (3) Aortic ectasia Status: Acute Continue current therapy with routine monitoring (4) Essential (primary) hypertension Status: Acute well controlled on medical therapy. Continue current therapy with routine monitoring (5) Pure hypercholesterolemia Status: Acute Takes Lipitor, PCP manages Sepsis Assessment - Evaluation Sepsis screening result: No Definite Risk
[2017-01-27] MEDS: FLECAINIDE 50 MG TABLET PO SCH ×2 (10:17→20:21)
[2017-01-27] MEDS ORDERED: --POM--ATORVASTATIN 40 MG TABLET PO SCH (21:00)
[2017-01-27] MEDS ORDERED: GLUCOSAMINE PO SCH (21:00)
[2017-01-27] MEDS ORDERED: CHONDROITIN PO SCH (21:00)
[2017-01-27] MEDS ORDERED: --POM--APIXABAN 5 MG TABLET PO SCH (21:00)
[2017-01-27] MEDS ORDERED: SALINE FLUSH 10ml SYRINGE IV PRN (22:27)
[2017-01-28 07:28] VITALS: BP 123/65; TEMP 98.2; O2SAT 97
--- NOTE | 2017-01-28 08:11 | Discharge Instructions ---
<Connie Ballard - Last Filed: 01/28/17 08:07> Discharge Plan - Med Rec/Dispo Referrals/Follow Up: Marc Avalos MD [Physician] - 02/10/17 9:00 am [facility] Instructions: Flecainide (By mouth) Prescriptions: New Flecainide [Tambocor] 50 mg PO Q12HR #60 tab Continue Nitroglycerin 0.4 mg SL PRN #0 Glucosamine/D3/[place] Sandi [Osteo Bi-Flex Tablet] 1 each PO HS Oxymetazoline HCl [Nasal [place]] 1 spray NS PRN Fluticasone Propionate [Flonase Allergy Relief] 2 spray NS DAILY Atorvastatin [Lipitor] 40 mg PO DAILY #0 Cyanocobalamin (B-12) [Vit. B-12] 1 tab PO DAILY #0 tab hydroCHLOROthiazide [Hydrochlorothiazide] 1 tab PO WB PRN #0 tab PRN Reason: DECREASED BLOOD PRESSURE Apixaban [Eliquis] 1 tab PO BID Febuxostat [Uloric] 1 tab PO DAILY - Disposition 01 Discharged Home, Self-Care <Marc Avalos - Last Filed: 02/03/17 08:37> Discharge Plan - Med Rec/Dispo - Attestation Attestation Narrative: 02/03/17 08:37 Recommendation After examining the patient I agree with the above assessment. I am involved in the formulation of the patient's plan of care.
[2017-01-28 08:26] VITALS: PULSE 61
[2017-01-28] MEDS: FLECAINIDE 50 MG TABLET PO SCH (08:27)
[2017-01-28] MEDS ORDERED: CYANOCOBALAMIN 100 MCG PO SCH (09:00)
[2017-01-28] MEDS ORDERED: FEBUXOSTAT 40 MG PO SCH (09:00)
[2017-01-28] MEDS ORDERED: [UNRECOGNIZED DRUG - REMARK] PO SCH (09:00)
== END 2017-01-28 09:11 | disposition home or self-care (01) ==
LOC: SRG → EDACCT#
PROVIDERS: ADMIT Internal Medicine Cardiovascular Disease; ATTEND Internal Medicine Cardiovascular Disease